=== PATIENT | male | born 1995 | race Caucasian/White ===

== ENCOUNTER 2019-09-26 13:59 | Inpatient (IN) | payer OTHER ==
[~2019-09-26] VITALS: Ht 185.4 cm; Wt 105.2 kg
--- NOTE | ~2019-09-26 | EEG ---
[facility] [place] [address] ELECTROENCEPHALOGRAM Name: KRISTIN PUTNAM Room #: 463-P ADM IN M.R.#: [id number] Admission: 09/26/19 Attend Phys: Cheo Marcano MD Discharge: Date of : [birth year] Report #: [id number] THIS REPORT FOR: //name// CC: FAM unknown Cheo Marcano DATE OF SERVICE: 09/28/2019 This patient is being evaluated for an episode of syncope. EEG is being done to evaluate the possibility of seizure. EEG was done by placing the electrode by standard 10-20 system of electrode placement. Both referential and sequential montages were used for recording. Background activity in this patient's EEG is about 10 Hz and 30 microvolt. This patient became drowsy and that is associated with bilateral slowing, vertex sharp waves and sleep spindle. Photic stimulation is unremarkable. Throughout the record, no active epileptiform activity was noticed. IMPRESSION: This patient's EEG is unremarkable. No active epileptiform activity was noticed during this record. By: 1424 1432 Christopher Farley MD /nt
[2019-09-26 14:00] VITALS: BP 120/77
[2019-09-26 14:48] LABS: ABSOLUTE NEUTROPHILS 3.9 thou/uL (1.4-8.2); BASOPHILS 0.7 % (0.0-2.0); EOSINOPHILS 1.7 % (0.0-3.0); HEMATOCRIT 47.6 % (42.0-52.0); HEMOGLOBIN 16.5 gm/dL (14.0-18.0); LYMPHOCYTES 25.3 % (24.0-44.0); MCHC 34.6 g/dL (28.0-37.0); MCV 89.7 fL (80.0-100.0); MONOCYTES 6.4 % (1.0-8.0); PLATELET COUNT 255 thou/uL (150-400); POLYS 65.9 % (36.0-66.0); RBC 5.31 mil/uL (4.50-6.00); RDW 12.9 % (10.5-14.5); WBC 5.9 thou/uL (4.0-11.0)
[2019-09-26 14:51] LABS: CALCIUM 8.7 mg/dL (8.5-10.1); CREATININE 1.1 mg/dL (0.7-1.3); POTASSIUM 3.2 mmol/L (3.5-5.1)
[2019-09-26 14:58] LABS: ALBUMIN 3.9 g/dL (3.4-5.0); TOTAL BILIRUBIN 0.9 mg/dL (<0.1-1.0); TOTAL PROTEIN 7.3 g/dL (6.4-8.2)
[2019-09-26 15:19] LABS: URINE BILIRUBIN NEGATIVE (Negative); URINE BLOOD NEGATIVE (Negative); URINE CLARITY CLEAR; URINE COLOR YELLOW; URINE GLUCOSE-RANDOM* NEGATIVE (Negative); URINE KETONES TRACE (Negative); URINE LEUKOCYTES-REFLEX NEGATIVE (Negative); URINE NITRITE-REFLEX NEGATIVE (Negative); URINE PROTEIN (DIPSTICK) NEGATIVE (Negative)
[2019-09-26 15:28] LABS: AMP/METHAMP POSITIVE (Negative); BARBITURATES Negative (Negative); BENZODIAZEPINES Negative (Negative); COCAINE Negative (Negative); METHADONE Negative (Negative); OPIATES POSITIVE (Negative); PCP Negative (Negative)
[2019-09-26] MEDS ORDERED: ZOFRAN ODT4 MG PO (18:39)
[2019-09-26 20:26] VITALS: BP 107/47
--- NOTE | 2019-09-26 21:02 | NUR ---
REPORT GIVEN TO MARION RN ON 3W. RN REQUESTED TO TALK TO HIS CHARGE NURSE PRIOR TO PT GOING TO THE FLOOR HE QUESTIONS IF OTHER COVID SWAB NEEDS TO BE COMPLETED
--- NOTE | 2019-09-26 21:40 | NUR ---
PT GIVES CONSENT TO TALK TO EITHER PARENT ABOUT ALL TESTS OR ANYTHING REGARDNG HIS CARE WHILE IN THE HOSPITAL INDIGO PUTNAM-FATHER [phone] KAUR PUTNAM-MOTHER [phone]
[2019-09-26 21:43] VITALS: BP 107/89
[2019-09-27 01:25] VITALS: BP 94/45
--- NOTE | 2019-09-27 02:46 | NUR ---
PT ARRIVED ON THE FLOOR AROUND 2200, PT IS AWAKE ALERT AND ORIENTEDX4, MAKES NEEDS KNOWN, VS STABLE, ON ROOM AIR O2SAT STABLE, DENIES CHEST PAIN, NAUSEA/VOMITTING OR SOB, ADMISSION ASSESMENT DONE AND CHARTED, C/O BACK PAIN, PT RESTING WITH NO DITRESS NOTED, WILL CONTINUE TO MONITOR
--- NOTE | 2019-09-27 07:32 | NUR ---
CONSULT CALLED TO NEPHROLOGY, PT IS REQUESTING HIS PARENTS BE INFORMED ABOUT COVID RESULTS SOON THE RESULTS IS BACK, RESTED WELL, REPORT PASSED TO THE DAY NURSE
[2019-09-27 07:38] VITALS: BP 111/55
--- NOTE | 2019-09-27 08:39 | EKG ---
[facility] [place] [address] ELECTROCARDIOGRAM REPORT Name: KRISTIN PUTNAM Room #: 364-P ADM IN M.R.#: [id number] Admission: 09/26/19 Attend Phys: Cheo Marcano MD Discharge: Date of : [birth year] Report #: [id number] THIS REPORT FOR: cc: FAM - Family physician unknown FAM - Family physician unknown Justino Westbrook MD [facility] THIS REPORT FOR: //name// [facility] ED Test Date: 2019-09-26 Test Time: 15:05:10 Pat Name: KRISTIN PUTNAM Department: Room: [facility] Gender: M [employer] Interviewer: : 1995 Requested By: Jayleen Partida Order Number: [id number] MD: Justino Westbrook Measurements Intervals [place] Rate: 65 P: 58 CT: 157 QRS: 63 QRSD: 90 T: 37 QT: 399 QTc: 415 Interpretive Statements Sinus rhythm Normal tracing No previous ECG available for comparison Electronically Signed On 09-27-2019 8:37:26 CDT by Justino Westbrook [email or web address] <ELECTRONICALLY SIGNED> By: Justino Westbrook MD, [facility] 09/27/19 0837 1505 1505 Justino Westbrook MD, FACC /EPI
[2019-09-27 08:52] LABS: CALCIUM 8.3 mg/dL (8.5-10.1); CREATININE 1.1 mg/dL (0.7-1.3); POTASSIUM 4.1 mmol/L (3.5-5.1)
--- NOTE | 2019-09-27 14:27 | 2DMMODE ---
[facility] [place] [address] 2 D/M-MODE ECHOCARDIOGRAM Name: KRISTIN PUTNAM Room #: 364-P ADM IN M.R.#: [id number] Admission: 09/26/19 Attend Phys: Cheo Marcano MD Discharge: Date of : [birth year] Report #: [id number] THIS REPORT FOR: cc: FAM - Family physician unknown FAM - Family physician unknown Justino Westbrook MD [facility] ~ APPROVED REPORT Study performed: 09/27/2019 12:39:52 EXAM: Comprehensive 2D, Doppler, and color-flow Echocardiogram Patient Location: Bedside Room #: 364 Status: routine BSA: 2.25 HR: 54 bpm BP: 111/55 mmHg Rhythm: NSR Other Information Study Quality: Adequate/lung artifact Indications Synopal episode. Hx: DM. 2D Dimensions RVDd: 36.73 mm IVSd: 9.64 (7-11mm) LVOT Diam: 20.59 (18-24mm) LVDd: 51.41 mm PWd: 9.79 (7-11mm) Ascending Ao: 28.09 (22-36mm) LVDs: 35.63 (25-40mm) Aortic Root: 29.59 mm Volumes Left Atrial Volume (Systole) Single Plane 4CH: 44.89 mL Single Plane 2CH: 55.73 mL Aortic Valve AoV Peak Parag.: 1.49 m/s AO Peak Gr.: 8.82 mmHg LVOT Max P.97 mmHg LVOT Max V: 1.00 m/s OLIVE Vmax: 2.23 cm2 Mitral Valve [facility] [address] [place] [address] 2 D/M-MODE ECHOCARDIOGRAM Name: KRISTIN PUTNAM Room #: 364-P [facility] IN .R.#: [id number] Admission: 09/26/19 Attend Phys: Cheo Marcano, Discharge: Date of : [birth year] Report #: [id number] E/A Ratio: 2.3 MV Decel. Time: 200.88 ms MV E Max Parag.: 1.03 m/s MV A Parag.: 0.45 m/s MV PHT: 58.25 ms IVRT: 65.74 ms Pulmonary Valve PV Peak Parag.: 0.85 m/s PV Peak Gr.: 2.90 mmHg Pulmonary Vein P Vein S: 0.63 m/s P Vein A: 0.26 m/s P Vein D: 0.52 m/s P Vein A Dur.: 103.8 msec P Vein S/D Ratio: 1.21 Tricuspid Valve TR Peak Parag.: 2.41 m/s RAP Estimate: 5.00 mmHg TR Peak Gr.: 23.14 mmHg PA Pressure: 28.00 mmHg Left Ventricle The left ventricle is normal size. There is normal LV segmental wall motion. There is normal left ventricular wall thickness. Left ventricular systolic function is normal. LVEF 60-65%. The left ventricular diastolic function is normal. Right Ventricle The right ventricle is normal size. The right ventricular systolic function is normal. Atria The left atrium size is normal. The right atrium size is normal. Aortic Valve The aortic valve is normal in structure. No aortic regurgitation is present. There is no aortic valvular stenosis. Mitral Valve The mitral valve is normal in structure. Trace mitral regurgitation. No evidence of mitral valve stenosis. Tricuspid Valve The tricuspid valve is normal in structure. Trace tricuspid regurgitation. Estimated PAP is 28mmHg. [facility] [place] [address] 2 D/M-MODE ECHOCARDIOGRAM Name: KRISTIN PUTNAM Room #: 364-P ADM IN M.R.#: [id number] Admission: 09/26/19 Attend Phys: Cheo Marcano, Discharge: Date of : [birth year] Report #: [id number] Pulmonic Valve The pulmonary valve is normal in structure. Mild pulmonic regurgitation. Great Vessels The aortic root is normal in size. The ascending aorta is normal in size. IVC is normal in size and collapses >50% with inspiration. Pericardium There is no pericardial effusion. <Conclusion> 1. Normal echocardiogram with Doppler. Ejection fraction 65%. 2. Structural valvular disease was absent. No significant regurgitant or stenotic lesions. 3. Pulmonary artery systolic pressure of 28 mmHg. 4. No pericardial effusion. <ELECTRONICALLY SIGNED> By: Justino Westbrook MD, [facility] 09/27/19 142 24 24 Justino Westbrook MD, FACC /INF
[2019-09-27 15:43] VITALS: BP 110/72
[2019-09-27] MEDS ORDERED: NORCO 5-325 TA1 EAC1 PO (15:54)
[2019-09-27] MEDS ORDERED: ADDERALL XR 3030 MG PO (15:55)
[2019-09-27] MEDS ORDERED: LEXAPRO 10 MG T10 M2 PO (15:55)
[2019-09-27] MEDS ORDERED: NOVOLOG100 UNIT/1 SUBQ (15:56)
--- NOTE | 2019-09-27 17:01 | NUR ---
PT DENIES NAUSEA/VOMITING TODAY...SEEN BY DR PEREZ AND HAS PLANS FOR EGD TOMORROW.
[2019-09-27 18:00] VITALS: BP 117/67
--- NOTE | 2019-09-27 18:51 | NUR ---
ASSUMED CARE OF PT APPROX 1730, VSS, PAIN IN BACK. PATIENT HAD SHOWER AFTER BEING BROUGHT TO FLOOR. IV FLUIDS RUNNING, PATIENT DENIES N/V. PATIENT NPO AT MIDNIGHT FOR EGD FOR 09/27. NO SIGNS OF DISTRESS. WILL CONTINUE TO MONITOR.
[2019-09-27 20:24] VITALS: BP 118/71
--- NOTE | 2019-09-28 05:23 | NUR ---
ASSUMED PT CARE AROUND 1930. VSS. IVF D/C PER PT REQUEST AND MEDICAL POLICY SPECIALIST ORDER. INSULIN PUMP WAS REFILED WITH INSULIN PROVIDED BY PT. HIS ROOMMATE BROUGHT MEDICATION TO ER DOOR, I PICKED IT UP, PT REFILLED THE PUMP AND REMINDER OF THE MED WAS SENT HOME FOR SAFE KEEP. PT MEDICATED HIMSELF INSULIN BASED ON FSBS DONE BY STAFF AND WITNESS ON PUMP. KEPT NPO AFTER MD FOR EGD IN AM. NO S/S ACUTE DISTRESS NOTED OR REPORTED AT THIS TIME. [facility]
[2019-09-28 07:52] VITALS: BP 129/68
--- NOTE | 2019-09-28 10:05 | NUR ---
chart review. cm tried calling pt in room and on his cell phone . cm left message requested a call back. per chart pt lives with roommate and roommate is one that found pt down. pt has insulin pump. noted pt npo rt possible test/procedure. will cont following as needed for dc needs.
[2019-09-28 10:40] LABS: HEMATOCRIT 47.4 % (42.0-52.0); HEMOGLOBIN 16.4 gm/dL (14.0-18.0); MCHC 34.7 g/dL (28.0-37.0); MCV 89.3 fL (80.0-100.0); RBC 5.31 mil/uL (4.50-6.00); RDW 12.8 % (10.5-14.5); WBC 7.5 thou/uL (4.0-11.0)
[2019-09-28 10:56] LABS: MAGNESIUM 1.8 mg/dL (1.8-2.4); POTASSIUM 3.9 mmol/L (3.5-5.1)
--- NOTE | 2019-09-28 13:04 | HC ---
[facility] [place] [address] CONSULTATION Name: KRISTIN PUTNAM Room #: 463-P ADM IN M.R.#: [id number] Admission: 09/26/19 Attend Phys: Cheo Marcano MD Discharge: Date of : 93 Report #: [id number] THIS REPORT FOR: cc: TISH - Family physician unknown TISH - Family physician unknown Comfort Estes MD ~ CC: Dr. Nhi WINSTON unknown Cheo Marcano DATE OF SERVICE: 09/27/2019 CONSULTING PHYSICIAN: Dr. Shelton. REASON FOR CONSULTATION: Type 1 diabetes mellitus. HISTORY OF PRESENT ILLNESS: This is a 23-year-old male patient whose medical background is significant for type 1 diabetes mellitus diagnosed 11 years ago. The patient presented yesterday to the ER after having been found unconscious by his roommate. This was presumed to be due to hypoglycemia, although his blood glucose found at 75 mg/dL. The patient was then transferred to the ER where he continued to feel off and describes issues with nausea and vomiting that was productive of blood tinged material and some point. The patient was subsequently admitted for further care and monitoring. The patient was diagnosed with type 1 diabetes mellitus 11 years ago. He is currently on a Humalog insulin therapy via a MiniMed Medtronic insulin pump, utilizing a basal rate of 1.3 units per hour, 24 hours a day, carbohydrate ratio of 1:13, insulin sensitivity factor of 50, and blood sugar target of 100 to 120. The patient notes that he would completely suspend his insulin pump when physically active, which he is at his workplace with [employer] about 10-12 hours a day. He would do the same when he is hiking or participating in significant physical activity. The patient notes that having done so over a long period of time, his blood glucose values would remain well below 150 mg/dL. He explained that when he tried to utilize a temporary basal setting in the past he had to deal with significant hypoglycemia. The patient's hypoglycemic events tend to be mild to moderate and he has never experienced severe neuroglycopenia in the past due to hypoglycemia. The patient's most recent hemoglobin A1c was less than a month ago and came back at 6.1%. The patient has not had issues with diabetic neuropathy or diabetic retinopathy. He is not known to have CKD. Interestingly, the patient notes that he was the subject of a clinical trial for 4 years involving the utilization of immune therapy for type 1 diabetes mellitus, which he credits with his lack of need for insulin when physically active [address] [address] CONSULTATION Name: KRISTIN PUTNAM Room #: 463-P [facility] IN ..#: [id number] Admission: 09/26/19 Attend Phys: Cheo Marcano MD Discharge: Date of : 93 Report #: [id number] REVIEW OF SYSTEMS: CONSTITUTIONAL: Fatigue, tiredness, but no fever or chills or body weight changes. HEENT: Negative for sore throat, sinus pain or ear drainage. PULMONARY: Negative for shortness of breath, cough or hemoptysis. CARDIAC: Negative for chest pain, palpitations, syncope or presyncope. GASTROINTESTINAL: Negative for significant changes in bowel movements, but noted for abdominal discomfort, nausea and vomiting with possible hematemesis. NEUROLOGY: Negative for seizure activity, severe frequent headaches, numbness, tingling, tremors, but noted for loss of consciousness prior to his presentation. PSYCHIATRIC: Negative for delusions, hallucinations or significant issues with anxiety or depression. Otherwise, review of systems noncontributory other than those mentioned in HPI. PAST MEDICAL HISTORY: 1. Noted for type 1 diabetes mellitus as noted in HPI. 2. ADHD. 3. Chronic back pain due to back injury. ACTIVE MEDICATIONS: 1. Humalog insulin as per the insulin pump settings as per the HPI above. 2. Adderall p.r.n. 3. Oxycodone p.r.n. ALLERGIES: No known drug allergies. FAMILY HISTORY: Noncontributory. 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 Denies the use of tobacco or illicit drugs and drinks alcohol only occasionally. PHYSICAL EXAMINATION: GENERAL: Pleasant male patient who is not in apparent pain or distress. VITAL SIGNS: Blood pressure is 111/55 mmHg, heart rate 70 beats per minute, respirations 20 per minute, temperature 36.7 degrees Celsius. CONSTITUTIONAL: Lying in bed comfortably, not in pain or distress. HEENT: Anicteric sclerae. Intact extraocular motions. NECK: Supple, without JVD, carotid bruits or lymphadenopathy. I do not appreciate thyromegaly. CHEST: Noted for good air entry bilaterally with scattered few rales, but not wheezes or crackles. HEART: Regular rate and rhythm without murmurs or gallops. ABDOMEN: Soft, lax. No guarding. Active bowel sounds. EXTREMITIES: Lower extremity exam is negative for ankle edema, skin breaks, [facility] [address] [place] [address] CONSULTATION Name: KRISTIN PUTNAM Room #: 463-P ADM IN M.R.#: [id number] Admission: 09/26/19 Attend Phys: Cheo Marcano MD Discharge: Date of : 93 Report #: [id number] ulcerations. Pedal pulses are appreciated. Sensation to light touch is intact. NEUROLOGIC: Awake, alert and oriented to time, place and person. The remainder of his examination is nonfocal. PSYCH: Interactive, appropriate, pleasant. Normal mood and affect. LABORATORY DATA: Blood glucose on arrival was 119 and is most recently at 265 mg/dL. Otherwise, sodium 136, potassium 4.1, chloride 102, CO2 of 28, anion gap 6, BUN 13, creatinine 1.1, total bilirubin 0.9, calcium 8.3, alkaline phosphatase 94, ALT 38, total protein 7.3, albumin 3.9 and EGFR 82. Lactic acid 0.8. Troponin is negative. Opiates positive. White blood count 5.9, hemoglobin 16.5, hematocrit 47.6, platelets 255. ASSESSMENT AND PLAN: Type 1 diabetes mellitus. As noted above, the patient seems to have been under very good control and is followed closely by Dr. Hankins at [facility]. Although his approach to basal insulin therapy is rather unconventional, he indicates that this was a product of his earlier intervention with immune therapy for type 1 diabetes mellitus. The patient appears to be well oriented to the level of control that he has been under lately and I am reassured by his reports of consistently adequate blood glucose control as well as adequate hemoglobin A1c control in the face of these practices. Since his admission last night, the patient has been off insulin pump and has just resumed it. After much discussion with the patient, I recommended that he would drop his basal rate to 1.1 unit per hour and maintain the same bolus settings for the time being. This stems from a concern that he had practically not used 1.3 units per hour for 24 hours in a great deal of time. If this proves to be inadequate, we could certainly titrate his basal rate back up to his baseline at 1.3 units per hour. Blood glucose monitoring will continue a.c. and at bedtime and the patient will be bolused as per his pump settings. I will not obtain a hemoglobin A1c since his most recent hemoglobin A1c was only a few weeks ago. I will continue to monitor the patient during his hospital stay and will introduce further changes and interventions as needed. I certainly appreciate the opportunity to participate in the care of Zbigniewmagdalena's patient. <ELECTRONICALLY SIGNED> By: Comfort Estes MD 09/28/19 1304 1249 1536 Comfort Estes MD /nt
[2019-09-28 17:11] VITALS: BP 120/71
--- NOTE | 2019-09-28 19:41 | NUR ---
Assumed pt care this am, EEG, EGD and Echo completed. MRI was cancelled by Dr. Tinajero since this required for insulin pump to be dc prior to MRI. Blood sugar checks done, pt has own insulin pump and pt would regulate his pump. POC followed, no signs or verbalizations of distress have been noted, pain managed with medication as per the emar. Pt is steay on his gait and on standby assits. Endorsed to the night nurse.
[2019-09-28 20:14] VITALS: BP 131/85
--- NOTE | 2019-09-29 05:20 | NUR ---
ASSUMED PT CARE AROUND 1930. AXOX4. INDEPENDENT WITH ADLs. MRI SCREENING COMPLETED. FSBS CHECKED FOR HS AND INSULIN GIVEN PER INSULIN PUMP. NO S/S ACUTE DISTRESS NOTED OR REPORTED AT THIS TIME. WILL CONT TO MONITOR FOR ANY CHANGES IN CONDITION.
[2019-09-29 08:53] VITALS: BP 131/79
[2019-09-29] MEDS ORDERED: PANTOPRAZOLE SO40 M1 PO (13:23)
[2019-09-29 14:25] VITALS: BP 131/79
--- NOTE | 2019-09-29 15:36 | NUR ---
Assumed pt care this am, vs have been stable through out the shift. MRI done this am. INsulin monitored, pt has an insulin pump and regulates the needs based on the blood sugar reading. POC followed with no signs or verbalizations of distress have been noted. DC instructions and education given. Wheeled pt vout to Dr. Dougherty office as per instuctions given to the pt when he dc's. Pt will be picked up by his mother at the clinic. IV removed, pt is now DC.
--- NOTE | 2019-09-29 16:10 | P ---
[facility] [place] [address] PROCEDURE REPORT Name: KRISTIN PUTNAM Room #: 463-P [facility] IN M.R.#: [id number] Admission: 09/26/19 Attend Phys: Cheo Marcano MD Discharge: 09/29/19 Date of : 93 Report #: [id number] THIS REPORT FOR: cc: [facility] - Family physician unknown FAM - Family physician unknown Emanuel Schafer MD ~ CC: [facility] unknown Cheo Marcano UPPER ENDOSCOPY REPORT BRIEF HISTORY: The patient is a 23-year-old male with diabetes, who had a syncopal event followed by nausea, vomiting, and hematemesis. He does have a history of symptoms, which are suggestive of reflux disease. Etiology of his syncopal event is not entirely clear. PREOPERATIVE DIAGNOSIS: Hematemesis. POSTOPERATIVE DIAGNOSES: 1. Gastritis. 2. Mild esophagitis. MEDICATIONS: Deep sedation with propofol per anesthesia. SPECIMEN: Biopsies of gastritis. ESTIMATED BLOOD LOSS: 3 mL. PROCEDURE: EGD with biopsy. FINDINGS: Prior to propofol sedation, procedure of upper endoscopy discussed with the patient as well as potential risks and its complications. He indicates he understands and desires to proceed. DESCRIPTION OF PROCEDURE: With the patient in left lateral decubitus position, the Olympus video endoscope was inserted in the cervical esophagus under direct vision without difficulty. Examination of this organ through its entire length revealed normal esophageal mucosa. No blood was seen. No bleeding lesions were seen. Examination of squamocolumnar junction revealed some very slight changes of esophagitis with tiny erosions at the GE junction. However, the GE junction was otherwise unremarkable and specifically there was no evidence of Deena-Palencia tear. A hiatus hernia was not seen. Scope was advanced in the stomach, was examined on end view as well as retroflexed views. Examination of the antrum revealed patchy gastritis was intact mucosa. No ulcers, erosions or blood was seen. Examination of the proximal stomach including retroflexed views did not reveal evidence of any mass lesions. However, in the fundus of the stomach, there was an area of mucosa, which was quite erythematous and somewhat [facility] [address] [place] [address] PROCEDURE REPORT Name: KRISTIN PUTNAM Room #: 463-P DIS IN M.R.#: [id number] Admission: 09/26/19 Attend Phys: Cheo Marcano MD Discharge: 09/29/19 Date of : 93 Report #: [id number] edematous, but overall the mucosa was intact and no ulceration was seen. This is likely trauma from vomiting and may have been the source of bleeding. No other lesions were seen. The pylorus, duodenal bulb and post-coronary sweep were inspected and noted to be unremarkable. At that point, the scope was slowly withdrawn and careful circumferential views confirmed the above findings. The patient tolerated the procedure well. Biopsies taken of the gastritis. DISPOSITION: The patient with hematemesis. I suspect the hematemesis was result of vomiting and the bleeding was associated with the injury to the gastric mucosa induced by vomiting. I do not see concern for continued gastrointestinal bleeding or significant issues. However, he does have suggested reflux symptoms and I would agree that a PPI may be appropriate. He may benefit from intermittent long-term use. We will follow up on biopsies and make further recommendations. No further GI workup planned at this time. <ELECTRONICALLY SIGNED> By: Emanuel Schafer MD 09/29/19 1610 1335 1343 Emanuel Schafer MD /nt
--- NOTE | 2019-09-30 13:08 | PATH ---
[facility] [address] [place] [address] PATHOLOGY RPT PROCEDURE Name: GASTON PUTNAM Room #: 463-P DIS IN M.R.#: [id number] Admission: 09/26/19 Date of : 89 Discharge: 09/29/19 Report #: [id number] Path Case #: [id number] [facility] Accession Number: [id number] . 01 Material submitted: . stomach - BIOPSY OF GASTRITIS . 01 Clinical history: . Hematemesis . 02 Diagnosis: Gastric mucosa, gastritis, endoscopic biopsy: - Mild reactive gastropathy. - Negative for intestinal metaplasia or atrophy. - Negative for Helicobacter pylori (properly controlled immunohistochemical stain performed). . (IUV:alphonso; 09/30/2019) QMS 09/30/2019 1124 Local . 02 Electronically signed: . Paula Neri MD, Pathologist NPI- [id number] . 01 Gross description: . The specimen is received in formalin, labeled "Gaston Putnam, biopsy of gastritis". Received are four segments of pale goddard soft tissue ranging in size from 0.3 to 0.6 cm in maximum dimensions. The specimen is submitted entirely in cassette A1. (CAA; 09/29/2019) QAC/QAC 09/29/2019 1258 Local . 02 Pathologist provided ICD-10: K31.9 . 02 CPT . 024684, B46305 Specimen Comment: A courtesy copy of this report has been sent to [phone] Specimen Comment: [id number] Specimen Comment: Report sent to / DR PITTS Performed at: [address] [id number] MD Prakash Gama MD Phone: [phone] Performed at: 02 [facility] [address] [place] [address] PATHOLOGY RPT PROCEDURE Name: GASTON PUTNAM Room #: 463-P [facility] IN M.R.#: [id number] Admission: 09/26/19 Date of : [birth year] Discharge: 09/29/19 Report #: [id number] Path Case #: [id number] [address] [place] [id number] MD Paula Neri MD Phone: [phone]
== END 2019-09-29 15:46 | disposition home or self-care (01) | DRG 637 ==
LOC: ER 13:59 → 3W 19:42 → EROBS 19:42 → 3W 21:44 → 4W 09-27 17:44
PROVIDERS: Nurse Practitioner Family; Physician Assistant; ADMIT Internal Medicine
PROC: 0DB58ZX Excision of Esophagus, Via Natural or Artificial Opening Endoscopic, Diagnostic (ICD-10-PCS; principal; 2019-09-28)
PROC: 0DB68ZX Excision of Stomach, Via Natural or Artificial Opening Endoscopic, Diagnostic (ICD-10-PCS; principal; 2019-09-28)
DX: E10.649 Type 1 diabetes mellitus with hypoglycemia without coma (principal); K29.71 Gastritis, unspecified, with bleeding; K92.0 Hematemesis; R55 Syncope and collapse; K20.9 Esophagitis, unspecified; Z20.828 Contact with and (suspected) exposure to other viral communicable diseases; F90.9 Attention-deficit hyperactivity disorder, unspecified type; M54.9 Dorsalgia, unspecified; G89.29 Other chronic pain; F32.9 Major depressive disorder, single episode, unspecified; E87.6 Hypokalemia; Z79.891 Long term (current) use of opiate analgesic; Z79.899 Other long term (current) drug therapy; Z79.4 Long term (current) use of insulin
CPT/HCPCS: 10040; 10080; 10879; 62110; 62900; 70005